=== PATIENT | female | born 1995 | race Asian ===

== ENCOUNTER 2025-01-22 06:00 | Inpatient (IN) | payer OTHER, SELFPAY ==
[2025-01-22] VITALS (130 sets, daily range): BP systolic 76–167; BP diastolic 33–144; PULSE 70–133; RESP 16; TEMP 35.8–36.8; O2SAT 93–100; BMI 29.3
--- NOTE | 2025-01-22 06:00 | LDADM ---
This patient, Christa Hoover, was admitted to Labor/Delivery/Recovery 107 on 01/22/25 at 06:00. Plans for labor, pain management and were discussed with patient. Patient/family oriented to hospital policies and general routines including ID bracelet, bed and alarms, visiting hours, pain management, procedures, bathroom and other care routines, personal items, smoking policy, room service/diet and guest tray routines, infant security routines, and visiting hours. Patient/Family are encouraged to report perceived risks to care and to ask questions if they do not understand what they are told or what they should do. See OBIX for further documentation.
[2025-01-22 06:47] LABS: Hematocrit 39.5 % (37.0-47.0); Hemoglobin 13.5 g/dL (12.0-15.0); Immature Granulocyte Percent A 0.3 % (0-0.5); Lymphocytes Absolute Auto 2.21 K/mm3 (0.9-3.2); Mean Corpuscular HGB Conc 34.2 g/dl (32-36); Mean Corpuscular Hemoglobin 31.1 pg (26-34); Mean Corpuscular Volume 91.0 fl (80-100); Nucleated Red Blood Cells Absolute Auto 0.000 K/mm3 (0.0-0.012); Nucleated Red Blood Cells Perc 0.0 % (0.0-0.2); Platelet Count Result 162 k/mm3 (150-375); Red Blood Count 4.34 M/mm3 (4.2-5.4); White Blood Count 6.9 K/mm3 (4.5-10.0)
[2025-01-22] MEDS: LACTATED RINGERS 1,000 ML 125 ML IV CONT ×3 (07:06→12:02)
--- NOTE | 2025-01-22 07:06 | PM.IMHP ---
H&P: HPI History of Present Illness Date/Time: 01/22/25 07:06 Chief Complaint: induction of labor Narrative: Christa is a 29yo @ 39.4wks who presents for induction of labor. She has A1GDM which is diet controlled and has been following w/ MFM as well. She reports good movement. Irregular contractions. No vaginal bleeding or leakage of fluid. Her is complicated by: - Hx sciatica...PT/chiropractic as needed - Hx hemorrhoids...Miralax/hydration - GDM; A1, diet controlled Review of Systems Constitutional: Constitutional: Denies chills, Denies fever(s) and Denies headache(s) Eyes: Eyes: Denies change in vision ENT: Denies headache(s) Cardiovascular: Cardiovascular: Denies chest pain and Denies dyspnea Respiratory: Respiratory: Denies dyspnea Genitourinary: Genitourinary: Denies abnormal vaginal bleeding and Denies vaginal discharge Neurologic: Denies headache(s) Psychiatric: Psychiatric: Denies anxiety and Denies depression [facility] Surgical History Surgical History History of ankle surgery fractured Family History Family History Grandparent Diabetes mellitus Social History Social History Smoking status: Never smoker Second hand tobacco smoke exposure: No Alcohol intake: former Alcohol use details: social Substance use: former Substance use type: marijuana Do You Feel Safe in your Home?: Yes Lack of Transportation: No Lack of Food: Never True Current Housing: I Have Housing Concerned About Future Housing: No Difficulty Paying Gas/Electric Bills: No Difficulty Paying for Meds: No Currently Unemployed: No Education: Master's Degree or Higher Difficulty w/ Childcare or Family Care: No Living arrangements: with family Additional living arrangements comments: Occupation/Education: occupation Additional occupation/education comments: [employer] Gender identity (if verbalized by the patient): Female Sexual Orientation (if Verbalized by the Patient): Straight or Heterosexual Spiritual care concerns: No Meds Home Medications and Allergies Home Medications ?Medication ?Instructions ?Recorded ?Confirmed ?Type vits no.126-ferrous fum tablet PO 06/13/24 01/16/25 History 28 mg iron-folic acid 800 mcg tablet (Classic ) aspirin 81 mg tablet,delayed 81 mg PO DAILY 08/08/24 01/16/25 History release (Adult Low Dose Aspirin) calcium carbonate (Tums) 168 mg PO TID 09/07/24 01/16/25 History famotidine 20 mg tablet (Pepcid) 20 mg PO DAILY 10/31/24 01/16/25 History Allergies Allergy/AdvReac Type Severity Reaction Status Date / Time No Known Allergies Allergy Verified 01/22/25 07:25 Vital Signs Vital Signs - 24 hr 01/22/25 06:25 01/22/25 06:31 01/22/25 06:46 Pulse Rate 86 82 81 Blood Pressure 119/84 105/67 105/65 01/22/25 07:01 Pulse Rate 77 Blood Pressure 123/84 Exam Const: General: cooperative, no acute distress and obese Nutritional Appearance: obese Orientation/consciousness: patient oriented x3 Resp: Effort & Inspection: normal respiratory effort Cardio: Rate: regular rate GI: GI Palp: No abdominal tenderness : Other: FHT's: 140's/ mod rufino/ + accels/ no decels - cat 1 TOCO: ctxs q3min Cervix: 4.5/50/-2 Membranes: AROM, clear 0725 Presentation: cephalic Skin: General skin exam: normal color Neuro: General: patient oriented x3 Extrem: General: normal to inspection Psych: Appearance: grossly normal Affect: normal affect Attitude: cooperative H&P: Results Labs Labs: Short CBC 01/22/25 Range/Units 06:26 WBC 6.9 (4.5-10.0) K/mm3 Hgb 13.5 (12.0-15.0) g/dL Hct 39.5 (37.0-47.0) % Plt Count 162 (150-375) k/mm3 Assessment and Plan Assessment and plan (1) Gestational diabetes: Code(s): O24.419 - Gestational diabetes mellitus in , unspecified control Status: Acute Plan - Admitted for medical induction of labor; risks and benefits discussed - AROM, clear @ 0725 - High dose pitocin per protocol - Continuous monitoring - GBS neg - Anesthesia consult PRN pain - BS q4h while in latent phase; q2h in active; q1h if abnormal
[2025-01-22] MEDS: OXYTOCIN 30 UNITS/NS 500 ML 30 UNITS/500 ML BAG 6 UNITS IV CONT (07:07)
[2025-01-22 07:38] LABS: Syphilis IgG/IgM Antibody Non-Reactive (Nonreactive)
[2025-01-22] MEDS: fentaNYL CITRATE INJ (*CRX) 100 MCG/2 ML VIAL IV PUSH (09:47)
--- NOTE | 2025-01-22 09:59 | WPDANESEPP ---
Anes - Eval Pre Procedure Procedure: Labor epidural Date/Time: 01/22/25 09:59 Surgeon: Dewey Preop Diagnosis: Abdominal pain with contractions Pre Op Diagnosis: IOL Patient Data Age: 29 Gender: F Height: 1.7 m Weight: 85 kg Last Vital Signs Temp 96.7 F L 01/22/25 09:30 Pulse 80 01/22/25 08:55 BP 125/95 H 01/22/25 09:01 O2 Del Method Room Air 01/22/25 07:10 Allergies Allergy/AdvReac Type Severity Reaction Status Date / Time No Known Allergies Allergy Verified 01/22/25 07:25 Home Medications ?Medication ?Instructions ?Recorded ?Confirmed ?Type vits no.126-ferrous fum tablet PO 06/13/24 01/16/25 History 28 mg iron-folic acid 800 mcg tablet (Classic ) aspirin 81 mg tablet,delayed 81 mg PO DAILY 08/08/24 01/22/25 History release (Adult Low Dose Aspirin) calcium carbonate (Tums) 168 mg PO TID 09/07/24 01/22/25 History famotidine 20 mg tablet (Pepcid) 20 mg PO DAILY 10/31/24 01/16/25 History Laboratory Tests 01/22/25 01/22/25 06:26 06:39 WBC 6.9 K/mm3 (4.5-10.0) RBC 4.34 M/mm3 (4.2-5.4) Hgb 13.5 g/dL (12.0-15.0) Hct 39.5 % (37.0-47.0) MCV 91.0 fl (80-100) MCH 31.1 pg (26-34) MCHC 34.2 g/dl (32-36) RDW 13.2 % (11.5-14.5) Plt Count 162 k/mm3 (150-375) MPV 11.8 H fl (7.4-10.4) Immature Gran % (Auto) 0.3 % (0-0.5) Neut % (Auto) 55.0 % (45.5-73.1) Lymph % (Auto) 32.3 % (18.3-44.2) [place] % (Auto) 10.4 H % (2.6-8.5) Eos % (Auto) 1.6 % (0-4.4) Baso % (Auto) 0.4 % (0.2-1.2) Lymph # (Auto) 2.21 K/mm3 (0.9-3.2) [place] # (Auto) 0.7 H K/mm3 (0.1-0.6) Eos # (Auto) 0.1 K/mm3 (0-0.3) Baso # (Auto) 0.0 K/mm3 (0.0-0.1) Abs Immat Gran (auto) 0.02 K/mm3 (0.00-0.031) Absolute Neuts (auto) 3.8 K/mm3 (1.3-6.7) Absolute Nucleated RBC 0.000 K/mm3 (0.0-0.012) Nucleated RBC % 0.0 % (0.0-0.2) POC Capillary Glucose 85 mg/dl (65-105) Syphilis IgG/IgM Ab Non-reactive (Nonreactive) Blood Type O Positive Antibody Screen Negative : gestational age HCG: positive Patient hx anesthesia problems: none Family hx anesthesia problems: none Results Review: All pre-operative results and documents have been reviewed as part of the pre-operative evaluation. [facility] Past Medical History Medical History (Updated 01/22/25 @ 10:00 by Mor Santos Jr., CRNA) Overweight (BMI 25.0-29.9) and not yet delivered Gestational diabetes Surgical History Surgical History History of ankle surgery fractured Family History Family History Grandparent Diabetes mellitus Social History Social History Smoking status: Never smoker Second hand tobacco smoke exposure: No Alcohol intake: former Alcohol use details: social Substance use: former Substance use type: marijuana Do You Feel Safe in your Home?: Yes Lack of Transportation: No Lack of Food: Never True Current Housing: I Have Housing Concerned About Future Housing: No Difficulty Paying Gas/Electric Bills: No Difficulty Paying for Meds: No Currently Unemployed: No Education: Master's Degree or Higher Difficulty w/ Childcare or Family Care: No Living arrangements: with family Additional living arrangements comments: Occupation/Education: occupation Additional occupation/education comments: [employer] Gender identity (if verbalized by the patient): Female Sexual Orientation (if Verbalized by the Patient): Straight or Heterosexual Spiritual care concerns: No Exam Day of Procedure 01/22/25 09:59 Patient weight: overweight Airway: Mallampati scale class II
--- NOTE | 2025-01-22 13:36 | PM.OBPNLAB ---
Pain Control Date/time seen: 01/22/25 13:21 Pain control: epidural Pelvic Exam Dilation (cm): 9 (.5) Effacement (%): 100 station: 0 Amniotic membrane status: Ruptured Contractions Monitor mode: External Contraction frequency: 2 (-3) Contraction pattern: Regular Status status: Category ll Comments: slightly lower baseline but moderate variability and no decels Assessment and Plan Pitocin rate (mU/min): 0 Assessment: active labor Plan: continuous present management Comments: - monitoring closely (baseline has been 105s) - anticipate soon
[2025-01-22] MEDS: ONDANSETRON INJ 4 MG/2 ML VIAL IV PUSH (13:41)
--- NOTE | 2025-01-22 15:53 | S_PTH ---
PATIENT: Christa Hoover LOC: [facility] U#:[id number] AGE/SX: 29/F ROOM: 290 RE01/22/[address]: Katie Palomo MD : 1995 BED: 00 DIS: 01/24/2025 SPEC #: [id number] RECD: 01/23/25 07:33 STATUS: SHAQ REStephen #: [id number] JIM: 01/22/25 15:[address]: Katie Palomo DEPT: [facility] [place] Surgical RECD BY: Wale Reynaga ENTERED: 01/23/25 07:33 SP TYPE: Surgical OTHR DR: PHYSICIAN NOT ON STAFF Tissues: A - Placenta Procedures: Hematoxylin and Eosin Stain Gross and Microscopic Level 5
--- NOTE | 2025-01-22 16:13 | PM.OBPRVD ---
OB - Vaginal Delivery Note Procedure Delivery date: 01/22/25 Events: Diabetes Mellitus (A1GDM) Induction method: Per Pitocin Protocol Delivery augmentation: Rupture of Membranes Delivery monitor: External FHT and External Uterine Route of delivery: Episiotomy description: None Laceration Description: None Specimen: Yes (placenta) Quantitative Blood Loss (ml): 50 Anesthesia type: Epidural Disposition: Floor Complications: No immediate complications Baby Date of : 01/22/25 Time of : 15:48 Gestational Age by Date: 39 (.4) gender: Male presentation: vertex position: Right Occiput Anterior Placenta delivery description: Expressed (succenturiate lobe noted) Cord Vessel Description: 3 Vessels and Delayed Cord Clamping score one minute: 9 score five minutes: 9 Narrative: Christa progressed to complete dilation and began pushing with good maternal effort. She pushed for approximately 1 hour and delivered the head over intact perineum. No nuchal cord was palpated. She easily delivered the 's shoulders and body without complication. The was immediately placed skin to skin and had spontaneous cry. Delayed cord clamping was performed. The umbilical cord was then doubly clamped and cut by dad. Some of the cord was collected for cord gases. Remaining cord blood was collected for typing. With Pitocin running and gentle downward traction on the cord, the placenta delivered without complication. Bimanual massage was performed and good uterine tone with minimal bleeding was noted. She was examined and no lacerations were identified. Her uterus remained firm with minimal bleeding. Sponge, lap, instrument, and needle counts were correct at the end procedure. Mom and baby were left bonding in the birthing suite in stable condition.
[2025-01-22] MEDS: OXYTOCIN 30 UNITS/NS 500 ML 30 UNITS/500 ML BAG 125 UNITS IV CONT (16:26)
--- NOTE | 2025-01-22 18:55 | OBPPTRN ---
Patient transferred to post room #290 via wheelchair. Support person present. Oriented to unit, room, information board, rooming in, admission packet and security measures. Patient verbalizes understanding.
[2025-01-23 00:14] VITALS: BP 140/86; PULSE 102; RESP 16; TEMP 36.6; O2SAT 97
[2025-01-23 03:45] VITALS: BP 115/58; PULSE 100
[2025-01-23 04:57] LABS: Hematocrit 36.8 % (37.0-47.0); Hemoglobin 12.5 g/dL (12.0-15.0)
--- NOTE | 2025-01-23 07:32 | P.PNOB_ITS ---
OB - PN: Subj Subjective Date/time seen: 01/23/25 07:35 Narrative: PPD#1 Ami reports doing well today. 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 Her pain is controlled. She is tolerating regular diet, voiding, passing gas, and ambulating without issues. She is breast feeding. She would like her son circumcised. OB - PN: Obj Data Labs 01/23/25 03:45 Labs: Laboratory Results - last 24 hr 01/22/25 01/22/25 01/22/25 06:26 06:39 10:19 WBC 6.9 RBC 4.34 Hgb 13.5 Hct 39.5 MCV 91.0 MCH 31.1 MCHC 34.2 RDW 13.2 Plt Count 162 MPV 11.8 H Immature Gran % (Auto) 0.3 Neut % (Auto) 55.0 Lymph % (Auto) 32.3 [place] % (Auto) 10.4 H Eos % (Auto) 1.6 Baso % (Auto) 0.4 Lymph # (Auto) 2.21 [place] # (Auto) 0.7 H Eos # (Auto) 0.1 Baso # (Auto) 0.0 Abs Immat Gran (auto) 0.02 Absolute Neuts (auto) 3.8 Absolute Nucleated RBC 0.000 Nucleated RBC % 0.0 POC Capillary Glucose 85 110 H Syphilis IgG/IgM Ab Non-reactive Blood Type O Positive Antibody Screen Negative 01/22/25 13:06 WBC RBC Hgb Hct MCV MCH MCHC RDW Plt Count MPV Immature Gran % (Auto) Neut % (Auto) Lymph % (Auto) [place] % (Auto) Eos % (Auto) Baso % (Auto) Lymph # (Auto) [place] # (Auto) Eos # (Auto) Baso # (Auto) Abs Immat Gran (auto) Absolute Neuts (auto) Absolute Nucleated RBC Nucleated RBC % POC Capillary Glucose 95 Syphilis IgG/IgM Ab Blood Type Antibody Screen OB - PN A/P Assessment and Plan (1) Normal vaginal delivery of first : Code(s): O80 - Encounter for full-term uncomplicated delivery Status: Acute Plan day: 1 Plan: routine care Comments: - PO pain meds - Regular diet - Ambulation and hydration encouraged - Continue putting baby to breast q2-3hr Time Spent With Patient Time: Total time spent is greater than 50% in coordination of care (as documented) at patient's floor/unit and/or counseling patient: Review of Systems 2 Constitutional: Constitutional: Denies chills, Denies fever(s) and Denies headache(s) Eyes: Eyes: Denies change in vision ENT: Denies dizziness and Denies headache(s) Cardiovascular: Cardiovascular: Denies chest pain, Denies palpitations and Denies dyspnea Respiratory: Respiratory: Denies cough and Denies dyspnea Gastrointestinal: Gastrointestinal: Denies nausea and Denies vomiting Neurologic: Denies dizziness and Denies headache(s) Endocrine: Endocrine: Denies palpitations Exam 2 Const: General: cooperative, comfortable and no acute distress O rientation/consciousness: patient oriented x3 Resp: Effort & Inspection: normal respiratory effort Auscultation: clear to auscultation bilaterally Cardio: Rate: regular rate GI: Inspection: non-distended GI Palp: No abdominal tenderness and Yes Soft to palpation Auscultation: normal bowel sounds : Other: fundus firm Skin: General skin exam: normal color Neuro: General: patient oriented x3 Extrem: General: normal to inspection Psych: Appearance: grossly normal Affect: normal affect Attitude: c ooperative
[2025-01-23 07:50] VITALS: BP 110/74; PULSE 101; RESP 18; TEMP 37.4; O2SAT 97
[2025-01-23] MEDS: DOCUSATE SODIUM 100 MG CAPSULE PO ×2 (08:02→17:30)
[2025-01-23] MEDS: MULTIVIT/MIN/PREN/FOL AC/IRON TABLET 1 TAB PO (08:02)
[2025-01-23] MEDS: ACETAMINOPHEN 325 MG TABLET 650 MG PO ×2 (08:02→14:05)
--- NOTE | 2025-01-23 10:43 | PC.NURSE ---
[id number] Mother called out for assistance with . Consulted with patient to assess needs related to . Discussed with mother her successes, concerns and any questions she has. Per mother infant had a few formula bottles through the night as he would not latch, she is using a hand pump when hasn't latched, she has an electric breast pump at home. We reviewed working with the infant, supporting breast, protecting her nipples with an optimal deep latch, good positioning, and good hand washing. Encouraged understanding the benefits of skin to skin, responding to feeding cues, frequencies of feeding 8-12 times in 24 hours (approximately 2-3 hours), duration of feedings, milk production, intake/output feeding sheet and signs of adequate intake encouraging swallowing at the breast. Reviewed positioning and alignment, supporting breast, off-centered (asymmetrical latch) and leading with the chin with big, open, wide gape. attempted to latch to the [left] breast in [football] position, sleepy. Education given to the mother of how to visualize the suckling (with good rocking jaw motion) swallows (dropping of the lower jaw) and how to listen for drinking at the breast (the ka sound). Suggested mother put infant skin to skin and watch for feeding cues for this next feeding. Nipple care reviewed with optimal latch, good positioning and using clean hands when touching her breast. Resources used to facilitate learning were used from the [visual handouts/ tool/mom and baby guide]. Mother voiced understanding of the education shared, to call for assistance if the infant does not latch or if there is discomfort with . Reported to the Primary RN. [phone] CLC returned to room to check on feeding, father of baby was giving baby a few milliliters (5mls) from a formula bottle to entice him and then mother was going to see if would latch. Mother was able to latch after doing nipple rolling/stretching on to her right breast in cross cradle but then would not suck. Advertising Inserter now in the room for infant's assessment, CLC RN to return. 0800 We reviewed positioning and alignment, supporting breast, off-centered (asymmetrical latch) and leading with the chin with big, open, wide gape. latched optimally to the [left] breast in [side-lying] position. Education given again to the mother of how to visualize the suckling (with good rocking jaw motion) swallows (dropping of the lower jaw) and how to listen for drinking at the breast (the ka sound). The was [able] to maintain latch without discomfort to mother. Resources used to facilitate learning were used from the [visual handouts/ tool/mom and baby guide]. Mother voiced understanding of the education shared, to call for assistance if the does not latch or if there is discomfort with . Reported to the Primary RN.
[2025-01-23] MEDS: IBUPROFEN 600 MG TABLET PO ×2 (11:14→17:30)
[2025-01-23 12:01] VITALS: BP 112/76; PULSE 93; RESP 16; TEMP 36.6; O2SAT 97
[2025-01-23] MEDS: LIDOCAINE 5% PATCH 1 PATCH TRANSDERM (14:02)
--- NOTE | 2025-01-23 15:42 | PC.NURSE ---
1245. Called to patients room to assist with latching to the breast. Multiple attempts made to wake and get him to latch at the breast. was unsuccessful at latching and feeding. Infant was offered 3 cc of formula and then reattempted latch. was able to latch for about 5 min total at the breast. Mom was encouraged to supplement after this feeding with formula or expressed breast milk. Infant took 15 cc of similac after this attempt. Mom was also encouraged to call out for assistance with feeding her infant for the next feeding. 1520. Mom called for assistance with latching her . was circumcised before this feeding. Infant is showing a few hunger cues, but still sleeping. Mom attempted skin to skin then latching her infant to the right breast. was unsuccessful at achieving a latch. Nipple shield provided to mother due to difficulty achieving latch. Reviewed good handwashing, cleaning the nipple shield and the appropriate way to apply and use as a tool. Discussed with mom the nipple shield precautions, possible complications associated with the risks and benefits. Reviewed practicing with a nipple shield, then without and how to protect the milk supply and production. Mom and baby guide referred to as a resource for outpatient services, community resources and when to call a provider. Mom voiced understanding of the importance of hand expression, nipple stimulation and initiating a pumping schedule if infant continues to nurse with the shield. Reported to the Primary RN. Mom attempted with the nipple shield at this time, but was too sleepy and did not wake to feed. Mom was encouraged to do skin to skin and watch for early feeding cues and attempt again with the soonest feeding cue. It was mentioned that mom can also feel free to call again for help if she needs.
--- NOTE | 2025-01-23 16:39 | WPDANLDPN2 ---
Anes-Prog Note L&D Date/Time: 01/23/25 16:39 Comfortable throughout: labor and delivery Neuraxial method: epidural Epidural/Spinal procedure site: clean & non-tender Neuro status: Neuro function grossly intact. Cardiovascular status: normal Respiratory status: normal Airway patency: baseline Mental status: baseline Post-Op hydration status: normal Vital Signs: Last Vital Signs Temp 98 F 01/23/25 12:01 Pulse 93 01/23/25 12:01 Resp 16 01/23/25 12:01 BP 112/76 01/23/25 12:01 Pulse Ox 97 01/23/25 12:01 O2 Del Method Room Air 01/23/25 07:20 Pain score (VAS): 0 I/O: Intake & Output 01/23/25 01/23/25 01/23/25 07:59 15:59 23:59 Intake Total 0 Balance 0 Post-procedural complaints: none Patient feedback: Patient satisfied with anesthetic care.
[2025-01-23 20:01] VITALS: BP 121/82; PULSE 70; RESP 18; TEMP 36.6; O2SAT 99
[2025-01-24] MEDS: DOCUSATE SODIUM 100 MG CAPSULE PO (07:32)
[2025-01-24] MEDS: IBUPROFEN 600 MG TABLET PO (07:33)
[2025-01-24] MEDS: MULTIVIT/MIN/PREN/FOL AC/IRON TABLET 1 TAB PO (07:33)
--- NOTE | 2025-01-24 07:45 | PC.NURSE ---
Patient attempting to breastfeed at this time. He has been sleepy and mom is pumping and supplementing with formula also. Infant gave a few attempts to open his mouth and mom tried to latch in cross cradle position. He latches and holds the nipple in his mouth without any effort to suck. Mom says this is typical of their attempts. Mom is not pumping any volume and is feeling discouraged that she isn't seeing more milk yet. Educated patient on the importance of continuing to stimulate her breasts frequently, ideally at each feeding time when infant does not feed well at breast. She has used the nipple shield and feels that baby will latch better with it. We reviewed the [id number] feeding plan and that she should attempt at breast every feeding, starting with skin to skin if baby is sleepy. After ten minutes of attempting, she should move on to pumping and supplementing unless baby feeds well at breast. Patient is encouraged to call out for additional feeding assistance today as needed. Primary RN updated.
--- NOTE | 2025-01-24 08:00 | P.DS_ITS ---
DS: Admitting Diagnosis Discharge Date 01/24/25 Admitting Diagnosis A1 GDM DS: Discharge Diagnosis Discharge Diagnosis (1) Normal vaginal delivery of first : Code(s): O80 - Encounter for full-term uncomplicated delivery Status: Acute OB - DS: Summary OB Procedures : Ultrasound OB Procedures Intrapartum: Spontaneous Vag Delivery OB Procedures: : None Peripartum Data Infant Delivery Method: Natural Vaginal Laceration Description: None Episiotomy description: None complications: none 1: Gender: Male Disposition of : home Status at Discharge Functional status at discharge: independent ambulation Overall status at discharge: patient is back to baseline Time Spent with Patient Time attestation: Total time spent providing and/or coordinating discharge services: Time spent: Less than 30 minutes Exam Const: General: cooperative, healthy appearing, comfortable and no acute distress Orientation/consciousness: patient oriented x3 Resp: Effort & Inspection: normal respiratory effort Auscultation: clear to auscultation bilaterally Cardio: Rate: regular rate GI: Inspection: non-distended GI Palp: No abdominal tenderness and Yes Soft to palpation Auscultation: normal bowel sounds : Other: fundus firm Skin: General skin exam: normal color Neuro: General: patient oriented x3 Extrem: General: normal to inspection Psych: Appearance: grossly normal Affect: normal affect Attitude: cooperative DS: Data Data Completed and Pending Pending studies at discharge: Pending at discharge 01/22/25 15:53 Surgical [PTH] Routine Labs on day of discharge: Labs from last 24 hours 01/23/25 03:45 Hgb 12.5 Hct 36.8 L Discharge Plan Discharge Attending physician on discharge: Katie Palomo Discharging Clinician: Katie Palomo Anticipated Discharge Date/Time: 01/24/25 11:00 Patient Disposition: Home Activity: may shower and pelvic rest Diet: regular Discharge Instructions: Pelvic rest for 6 weeks (no baths/pools/intercourse/tampons) Patient Instructions: Antibiotic Form Patient Language: Malian Stand Alone Forms: General Discharge Information Follow-up/Referrals: Katie Palomo MD [Physician, BILINGUAL SALES REPRESENTATIVE] - 4 Weeks Discharge Medications: New acetaminophen 325 mg Tablet 650 mg PO Q6H PRN (Reason: Mild Pain (1-3) Or Headache) Qty: 60 0RF docusate sodium 100 mg Capsule 100 mg PO BID PRN (Reason: Constipation) Qty: 90 0RF ibuprofen 600 mg Tablet 600 mg PO Q6H PRN (Reason: Cramping) Qty: 40 0RF Continued Classic 28 mg iron- 800 mcg tablet PO calcium carbonate [Tums] 200 mg calcium (500 mg) tablet,chewable 168 mg PO TID famotidine [Pepcid] 20 mg tablet 20 mg PO DAILY Discontinued aspirin [Adult Low Dose Aspirin] 81 mg tablet,delayed release (DR/EC) 81 mg PO DAILY Date of admission: 01/22/25 06:00 Primary Care Provider: PHYSICIAN NOT ON STAFF,NONSTAFF Admitting Provider: Katie Palomo Attending physician on admission: Katie Palomo Condition: Stable
[2025-01-24 08:05] VITALS: BP 121/80; PULSE 79; RESP 16; TEMP 36.6; O2SAT 97
--- NOTE | 2025-01-24 09:50 | PC.NURSE ---
Patient instructed on viewing the discharge video Mother & Baby Care, The First Two Weeks. Patient was given the opportunity and encouraged to ask questions. Patient verbalized understanding of information shared and has been given the mother/baby guide for home reference.
--- NOTE | 2025-01-24 15:16 | PC.NURSE ---
Rock Depression Scale same as on admission MD aware. Dr. Palomo discussed risks factors and when to call her with nurse present.
[2025-01-25 10:35] VITALS: BP 134/87; PULSE 72; RESP 18; TEMP 36.4; O2SAT 99
== END 2025-01-24 13:45 | disposition home or self-care (01) | DRG 807 ==
LOC: ANHLDR 06:04 → ANHOB2 18:55
PROVIDERS: Admitting Provider Obstetrics & Gynecology; Visit Provider Obstetrics & Gynecology
DX: O24.420 Gestational diabetes mellitus in childbirth, diet controlled (principal); Z37.0 Single live birth; Z3A.39 39 weeks gestation of pregnancy; O69.2XX0 Labor and delivery complicated by other cord entanglement, with compression, not applicable or unspecified; O43.193 Other malformation of placenta, third trimester
CPT/HCPCS: 36415; 82948; 85014; 85018; 85025; 86593; 86850; 86900; 86901; 88307; A9270; J2405; J2590; J2795; J3010; J7120